=== PATIENT | female | born 1960 | race Caucasian/White ===

== ENCOUNTER → 2024-04-12 10:06 | Outpatient (REF) | payer BC, SELFPAY | LOC: RCS 10:06 | PROVIDERS: ATTENDING PHYSICIAN Family Medicine | DX: Z87.74 Personal history of (corrected) congenital malformations of heart and circulatory system (principal); R06.02 Shortness of breath | CPT/HCPCS: 93306 ==

== ENCOUNTER → 2024-05-10 12:30 | Outpatient (REF) | payer BC, SELFPAY | LOC: RAD 12:30 | PROVIDERS: ATTENDING PHYSICIAN Family Medicine | DX: M79.605 Pain in left leg (principal) | CPT/HCPCS: 72110; 73502 ==

== ENCOUNTER → 2024-05-18 07:45 | Outpatient (REF) | payer BC, SELFPAY | LOC: WDC 07:45 | PROVIDERS: ATTENDING PHYSICIAN Family Medicine | DX: Z12.31 Encounter for screening mammogram for malignant neoplasm of breast (principal) | CPT/HCPCS: 77063; 77067 ==

== ENCOUNTER → 2024-06-24 13:06 | Outpatient (REF) | payer BC, SELFPAY | LOC: RAD 13:06 | PROVIDERS: ATTENDING PHYSICIAN Physician Assistant; FAMILY PHYSICIAN Family Medicine | DX: M81.0 Age-related osteoporosis without current pathological fracture (principal); Z13.820 Encounter for screening for osteoporosis | CPT/HCPCS: 77080 ==